=== PATIENT | female | born 1960 | race Caucasian/White ===

== ENCOUNTER → 2016-09-04 | Outpatient (CLI) | payer BC ==
[~2016-09-04] MED LIST: CLAR10CA3 PO; MULT-135 PO; PAXI10TA2 PO
[2016-09-04 13:36] LABS: BLOOD, URINE SMALL (NEG); COMMENT (UR) CULT NOT INDICATED; CULTURE IF INDICATED CULT NOT INDICATED; GLUCOSE,URINE NEG (NEG); KETONE, URINE NEG (NEG); MUCUS URINE FEW /lpf (OCC); NITRITE,URINE NEG (NEG); SQUAMOUS EPITHELIAL CELL URINE <1 /hpf (0-5); URINE COLOR YELLOW (YELLW/STRAW)
[2016-09-04 13:37] LABS: AUTOMATED NEUTROPHIL # 2.9 TH/MM3 (1.8-7.7); BASOPHIL % 0.7 % (0.0-2.0); EOSINOPHIL # 0.1 TH/MM3 (0-0.4); HEMATOCRIT 39.1 % (35.0-46.0); HEMO FLAGS DIFF FINAL; LYMPH % 34.5 % (9.0-44.0); LYMPHOCYTE # 1.9 TH/MM3 (1.0-4.8); MEAN CELL VOLUME 98.1 FL (80.0-100.0); MEAN CORPUSCULAR HEMOGLOBIN 33.7 PG (27.0-34.0); MEAN CORPUSCULAR HGB CONC 34.3 % (32.0-36.0); MONO % 9.2 % (0.0-8.0); NEUT % 53.6 % (16.0-70.0); PLATELET COUNT 190 TH/MM3 (150-450); RED BLOOD COUNT 3.98 MIL/MM3 (4.00-5.30); RED CELL DISTRIBUTION WIDTH 12.8 % (11.6-17.2); WHITE BLOOD COUNT 5.4 TH/MM3 (4.0-11.0)
--- NOTE | 2016-09-05 16:53 | EKG ---
Date Performed: 09/04/2016 Time Performed: 13:12:32 PTAGE: 56 years EKG: Sinus rhythm NORMAL ECG NO PREVIOUS TRACING DOCTOR: Joshua Mcgrath Interpretating Date/Time 09/05/2016 16:52:44
== END ==
LOC: CPRE 12:51
PROVIDERS: ATTEND Obstetrics & Gynecology
DX: Z01.810 Encounter for preprocedural cardiovascular examination (principal); Z01.812 Encounter for preprocedural laboratory examination; N95.0 Postmenopausal bleeding; D25.9 Leiomyoma of uterus, unspecified; N84.0 Polyp of corpus uteri
CPT/HCPCS: 36415; 81001; 85025; 93005

== ENCOUNTER 2016-09-10 10:35 | Observation (INO) | payer BC ==
--- NOTE | 2016-09-09 21:13 | MH ---
cc: IVAN KIRAN DATE OF ADMISSION: 09/10/2016 ADMISSION DIAGNOSIS Postmenopausal bleeding secondary to submucosal fibroids and uterine polyps. HISTORY OF PRESENT ILLNESS The patient is a 56-year-old white female, para 3-0-1-3, who has been menopausal for several years, had a heavy episode two years ago and x 2 again in July 2016. Endometrial biopsy in July of 2016 showed polyps. Ultrasound showed submucosal fibroids. She is now admitted for hysterectomy. PAST MEDICAL HISTORY PREVIOUS SURGERY 1. Cervical polyp in 1998. 2. Breast augmentation in 2010. MEDICATIONS 1. Vitamins. 2. Vivelle-Dot. 3. Prometrium. ALLERGIES None. TRANSFUSIONS None. OBSTETRICAL HISTORY Three vaginal deliveries. SOCIAL HISTORY , homemaker. Previously worked as an R.N. Alcohol occasional. Tobacco none. Drugs none. FAMILY HISTORY Noncontributory. PHYSICAL EXAMINATION GENERAL: A well-nourished, well-developed white female. VITAL SIGNS: Stable. HEENT: Exam is normal. CHEST: Clear. HEART: Regular rate. BREASTS: Symmetrical with implants. ABDOMEN: Benign. PELVIC EXAM: Normal external genitalia and BUS. Vagina is normal. Cervix normal. Uterus enlarged, about 12-14 weeks' size. Adnexa nonpalpable. ASSESSMENT As above. PLAN She is now admitted for laparoscopy, LASH-BSO, possible KARSON-BSO. While in the office I explained in the procedures, the risks, benefits and complications including but not limited to , infection and bleeding, explained and accepted. Discussed the recovery time, the planned incision. The patient would like to proceed. MD JOANNE Lentz/ANDREY /8:49 PM /9:01 PM
[~2016-09-10] VITALS: Ht 166.4 cm; Wt 61.6 kg
[~2016-09-10 10:35] MED LIST changes: -CLAR10CA3 PO; -MULT-135 PO
[2016-09-10] MEDS ORDERED: ACETAMINOPHEN 1000 MG/100 ML VIAL IV SCH ×2 (11:30→15:00)
[2016-09-10] MEDS ORDERED: CLAR10CA3 PO (11:36)
[2016-09-10] MEDS ORDERED: MULT-135 PO (11:36)
[2016-09-10 11:37] VITALS: BP 115/67; PULSE 61; RESP 16; TEMP 98.6; O2SAT 98
[2016-09-10] MEDS ORDERED: ceFAZolin 2 GM PREMIX 50 ML ONE (11:45)
[2016-09-10] MEDS ORDERED: LACTATED RINGER'S 1000 ML INJ 1,000 ML IV ONE (12:00)
[2016-09-10] MEDS ORDERED: METOPROLOL TARTRATE 25 MG TAB PO PRN (12:00)
[2016-09-10] MEDS ORDERED: PROPOFOL 200 MG/20 ML AMP IV ONE (12:00)
[2016-09-10] MEDS ORDERED: LACTATED RINGER'S 1000 ML IV SCH (12:00)
[2016-09-10] MEDS ORDERED: SODIUM CHLORID 0.9% 500 ML IV SCH (12:00)
[2016-09-10] MEDS ORDERED: NEOSTIGMINE METHYLSULFATE 10 MG/10 ML VIAL IV PUSH ONE (12:00)
[2016-09-10] MEDS ORDERED: ONDANSETRON HCL 4 MG/2 ML VIAL IV PUSH ONE (12:00)
[2016-09-10] MEDS ORDERED: INSULIN HUMAN REGULAR 1,000 UNITS/10 ML VIAL SQ PRN (12:00)
[2016-09-10] MEDS ORDERED: ceFAZolin 2 GM PREMIX 50 ML IV SCH (12:00)
[2016-09-10] MEDS ORDERED: MIDAZOLAM HCL 5 MG/5 ML VIAL ONE (12:03)
[2016-09-10] MEDS ORDERED: FAMOTIDINE 20 MG/2 ML VIAL ONE (12:03)
[2016-09-10] MEDS ORDERED: DEXAMETHASONE SOD PHOS PF 10 MG/ML VIAL IV ONE (12:40)
[2016-09-10] MEDS ORDERED: ROPIVACAINE 0.5% PF INJ 30 ML VIAL NB ONE (12:40)
[2016-09-10] MEDS ORDERED: ONDANSETRON HCL 4 MG/2 ML VIAL IV PRN (14:15)
[2016-09-10] MEDS ORDERED: ONDANSETRON ODT 4 MG TAB PO PRN (14:15)
[2016-09-10] MEDS ORDERED: HYDROmorphone HCL PF 1 MG/ML VIAL IV PRN (14:15)
[2016-09-10] MEDS ORDERED: diphenhydrAMINE HCL 25 MG CAP PO PRN (14:15)
[2016-09-10] MEDS ORDERED: SODIUM CHLORIDE 0.9% FLUSH 5 ML FLUSH FLUSH PRN (14:15)
[2016-09-10] MEDS ORDERED: ZOLPIDEM TARTRATE 5 MG TAB PO PRN (14:15)
[2016-09-10] MEDS ORDERED: PROMETHAZINE INJ 25 MG/ML VIAL IM PRN (14:15)
[2016-09-10] MEDS ORDERED: PROMETHAZINE HCL 25 MG TAB PO PRN (14:15)
[2016-09-10 14:30] VITALS: PULSE 73
[2016-09-10] MEDS ORDERED: DO NOT ADM ANY ANTICOAGULANT DRUGS XX PRN (14:30)
[2016-09-10] MEDS ORDERED: fentaNYL CITRATE 250 MCG/5 ML AMP ONE (14:33)
[2016-09-10] MEDS ORDERED: *morphine SULFATE 8 MG/ML PERIprocedure ONLY ONE (14:56)
[2016-09-10] MEDS ORDERED: PILL SPLITTER OTHER PRN (15:00)
[2016-09-10] MEDS ORDERED: ONDANSETRON INJ 8 MG in DEXTROSE 5% IN WATER INJ 50 ML IV PUSH PRN ×2 (15:00)
[2016-09-10] MEDS: D5-1/2 NS + KCL 20 MEQ INJ 1,000 ML IV SCH ×3 (15:10→23:58)
[2016-09-10 16:00] VITALS: BP 103/68; PULSE 68; RESP 18; TEMP 96.8; O2SAT 99
[2016-09-10] MEDS: DICLOFENAC SODIUM 37.5 MG/ML VIAL IV PUSH SCH ×2 (18:13→21:39)
[2016-09-10 18:36] LABS: HEMATOCRIT 36.2 % (35.0-46.0); REVIEW FLAG FINAL
[2016-09-10 20:00] VITALS: BP 111/67; PULSE 66; RESP 16; TEMP 96.5; O2SAT 99
[2016-09-10] MEDS ORDERED: PARoxetine HCL 20 MG TAB PO SCH (21:00)
[2016-09-10] MEDS: ACETAMINOPHEN 1000 MG/100 ML VIAL IV SCH (21:37)
[2016-09-10] MEDS: DOCUSATE SODIUM 100 MG CAP PO SCH (21:38)
[2016-09-10] MEDS: SODIUM CHLORIDE 0.9% FLUSH 5 ML FLUSH FLUSH SCH (21:39)
[2016-09-11 00:30] VITALS: BP 101/57; PULSE 72; RESP 16; TEMP 96.3; O2SAT 97
[2016-09-11] MEDS: DICLOFENAC SODIUM 37.5 MG/ML VIAL IV PUSH SCH ×2 (04:15→09:32)
[2016-09-11] MEDS: ACETAMINOPHEN 1000 MG/100 ML VIAL IV SCH ×2 (04:16→12:00)
[2016-09-11 04:30] VITALS: BP 107/56; PULSE 52; RESP 16; TEMP 97.2; O2SAT 99
[2016-09-11 07:50] LABS: AUTOMATED NEUTROPHIL # 4.7 TH/MM3 (1.8-7.7); BASOPHIL # 0.1 TH/MM3 (0-0.2); EOSINOPHIL % 0.2 % (0.0-4.0); HEMATOCRIT 33.8 % (35.0-46.0); HEMO FLAGS DIFF FINAL; LYMPH % 21.8 % (9.0-44.0); LYMPHOCYTE # 1.6 TH/MM3 (1.0-4.8); MEAN CELL VOLUME 99.1 FL (80.0-100.0); MEAN CORPUSCULAR HEMOGLOBIN 33.5 PG (27.0-34.0); MEAN CORPUSCULAR HGB CONC 33.8 % (32.0-36.0); MONO % 10.6 % (0.0-8.0); NEUT % 66.4 % (16.0-70.0); PLATELET COUNT 128 TH/MM3 (150-450); RED BLOOD COUNT 3.41 MIL/MM3 (4.00-5.30); RED CELL DISTRIBUTION WIDTH 12.2 % (11.6-17.2); WHITE BLOOD COUNT 7.1 TH/MM3 (4.0-11.0)
[2016-09-11 08:00] VITALS: BP 94/53; PULSE 57; RESP 16; TEMP 97.7; O2SAT 100
[2016-09-11 08:15] LABS: BICARBONATE 30.4 MEQ/L (21.0-32.0); POTASSIUM 4.1 MEQ/L (3.5-5.1)
[2016-09-11] MEDS ORDERED: LORATADINE 10 MG TAB PO SCH (09:00)
[2016-09-11] MEDS: DOCUSATE SODIUM 100 MG CAP PO SCH (09:31)
[2016-09-11] MEDS: SODIUM CHLORIDE 0.9% FLUSH 5 ML FLUSH FLUSH SCH (09:32)
--- NOTE | 2016-09-13 06:03 | MP ---
cc: IVAN KIRAN DATE OF SURGERY: 09/10/2016 PREOPERATIVE DIAGNOSIS bleeding, uterine fibroids, endometrial polyps. POSTOPERATIVE DIAGNOSIS bleeding, uterine fibroids, endometrial polyps. Pathology pending. PROCEDURE LAS BSO. ANESTHESIA General ET SURGEON Ivan Kiran MD MANAGER TRAINING: Vicenta. ESTIMATED BLOOD LOSS: About 50 cc. FLUIDS: 7 cc crystalloid. OBJECTIVE FINDINGS Following induction of adequate general endotracheal anesthesia the patient was prepped and draped supine on the operating table dorsal lithotomy position in sterile fashion with the bladder being drained by Corona catheterization. The abdomen entered with a 3 cm curving infraumbilical incision using a knife to cut down through skin to the fascia. The fascia opened transversely stripped the muscles. Rectus muscle in the midline and the peritoneum opened sharply without incident. The palpation was normal. The mini GelPort was placed. Laparoscope was inserted and the 5 port was placed in the left lower quadrant and low-pressure port in lower quadrant, she is about 12 weeks' size with fibroids, normal tubes normal ovaries normal cul-de-sacs normal liver edge. Working first on the left harmonic scalpel was used take the left ovarian vessels, left round ligament, left broad ligament, left-sided bladder flap and left uterine vessels and same on the right. A Harmonic scalpel now used to amputate the fundus from the cervix, the bleeding on the left side was controlled with the harmonic scalpel. Low pressure tests were done in the Trendelenburg and neutral position with no bleeding. The operative site was closed with Eviseal, the GelPort removed the peritoneum closed with running 2-0 Vicryl. The fascia with a running locking stitch of 0 Vicryl corner midline tied, Subcu and 3-0 Vicryl and skin with running subcuticular 3-0 Monocryl. The scope was now reinserted through lower ports used to inspect the GelPort site which was well closed with no bleeding or entrapment tissue. The pelvis inspected. There was no bleeding. Both ureters showed good peristalsis. Scope removed, gas allowed to escape. The small wounds closed with Monocryl, sterile bandage was applied. All counts were correct and the patient was awake and taken to the Recovery Room in good condition. MD JOANNE Lentz/anthony /2:10 PM /5:52 AM [email or web address]
== END 2016-09-11 12:54 | disposition home or self-care (01) ==
LOC: HSDC 10:35 → HSDI 14:04 → HOCB 16:07
PROVIDERS: ADMIT Obstetrics & Gynecology; ATTEND Obstetrics & Gynecology
DX: N95.0 Postmenopausal bleeding (principal); D25.0 Submucous leiomyoma of uterus; N84.0 Polyp of corpus uteri
CPT/HCPCS: 00840; 58542; 64486; 80048; 85014; 85018; 85025; 88307; 94150; G0378; J0131; J0690; J1100; J1130; J2250; J2270; J2405; J2710; J2795; J3010; J3480; J7120